=== PATIENT | male | born 1990 | race American Indian/Alaskan Native ===

== ENCOUNTER 2016-08-18 22:25 | Emergency (ER) | payer OTHER ==
--- NOTE | 2016-08-19 03:37 | XRay Report ---
FINAL REPORT PROCEDURE: XR CHEST ROUTINE 2V TECHNIQUE: PA and lateral chest radiographs were obtained. CPT 28987 HISTORY: Upper Respiratory Infection COMPARISON: No prior studies are available for comparison. FINDINGS: Heart: Normal. Mediastinum/Vessels: Normal. Lungs/Pleural space: Normal. Bony thorax: No acute osseous abnormality. Other: IMPRESSION: Normal examination.
[2016-08-19 04:15] LABS: Basophils % (Auto) 0.7 % (0.0-1.8); Hematocrit 42.2 % (35.5-45.6); Mean Corpuscular HGB Conc 33 % (32-34); Mean Corpuscular Hemoglobin 29 pg (28-32); Mean Corpuscular Volume 88 fl (84-94); Platelet Count 271 K/mm3 (140-440); Red Blood Count 4.81 M/mm3 (3.65-5.03); Red Cell Distribution Width 14.4 % (13.2-15.2); White Blood Count 7.1 K/mm3 (4.5-11.0)
[2016-08-19 04:41] VITALS: BP 152/108
[2016-08-19 04:47] LABS: Anion Gap 15 mmol/L; Blood Urea Nitrogen 9 mg/dL (9-20); Calcium 9.1 mg/dL (8.4-10.2); Carbon Dioxide 25 mmol/L (22-30); Chloride 95.6 mmol/L (98-107); Glucose 151 mg/dL (75-100); Potassium 3.5 mmol/L (3.6-5.0); Sodium 132 mmol/L (137-145)
--- NOTE | 2016-08-19 05:00 | Emergency Department Report ---
HPI - General Chief Complaint: Upper Respiratory Infection Time Seen by Provider: 08/19/16 03:09 - HPI HPI: 26-year-old male presents today with nasal congestion, cough, chest congestion and chest pain with deep breaths 4 days. Patient denies chest pain at rest. Patient states that he has tried taking [id number] cough medication and Motrin without relief. Denies sick contacts. Denies fever, chills, nausea, vomiting, shortness of breath, abdominal pain. ED Past Medical Hx - Past Medical History Previous Medical History?: Yes Hx Asthma: Yes (as child) Additional medical history: herniated discs - Surgical History Past Surgical History?: No - Social History Smoking Status: Current Every Day Smoker Substance Use Type: Alcohol - Medications Home Medications: Home Medications Medication Instructions Recorded Confirmed Last Taken Type Cephalexin [Keflex] 500 mg PO BID #20 capsule 06/26/16 Unknown Rx Ibuprofen [Motrin 800 MG tab] 800 mg PO Q8HR PRN #30 tablet 06/26/16 Unknown Rx Azithromycin [Zithromax Z-MICHELLE] 250 mg PO QDAY #6 tablet 08/19/16 Unknown Rx Promethazine Dm [Phenergan DM 5 ml PO Q6H PRN #1 bottle 08/19/16 Unknown Rx 6.25-15 mg/5 ml] ED Review of Systems ROS: Stated complaint: COLD SYMPTOMS Other details as noted in HPI Constitutional: denies: chills, fever, malaise ENT: congestion. denies: ear pain, throat pain Respiratory: cough. denies: shortness of breath, wheezing Cardiovascular: chest pain. denies: palpitations Endocrine: no symptoms reported Gastrointestinal: denies: abdominal pain, nausea, vomiting Neurological: denies: headache, weakness Physical Exam - Physical Exam Vital Signs: Vital Signs 08/18/16 08/19/16 23:37 04:38 Temperature 99.4 F 98.4 F Pulse Rate 96 H 93 H Respiratory 20 20 Rate Blood Pressure 147/97 Blood Pressure 152/108 [Right] O2 Sat by Pulse 100 98 Oximetry Physical Exam: GENERAL: The patient is well-developed and well-nourished. Patient is in NAD. HEAD: Normocephalic. Atraumatic. EYES: PERRL. EARS: External auditory canals and tympanic membranes clear; hearing grossly intact. NOSE: Normal nasal mucosa with no nasal discharge. No tenderness to palpation of maxillary or frontal sinuses. THROAT: No erythema, swelling or exudates. NECK: Supple, nontender, without lymphadenopathy. CHEST/LUNGS: Clear to auscultation throughout. HEART/CARDIOVASCULAR: Regular rate and rhythm. ABDOMEN: Abdomen is soft, nontender. No guarding or rebound tenderness. EXTREMITIES: Peripheral pulses intact. Capillary refill less than 2 seconds. NEURO: Alert and oriented x 3. Normal gait. ED Course Vital Signs 08/18/16 08/19/16 23:37 04:38 Temperature 99.4 F 98.4 F Pulse Rate 96 H 93 H Respiratory 20 20 Rate Blood Pressure 147/97 Blood Pressure 152/108 [Right] O2 Sat by Pulse 100 98 Oximetry ED Medical Decision Making - Lab Data Result diagrams: 08/19/16 04:06 08/19/16 04:06 Vital Signs 08/18/16 08/19/16 23:37 04:38 Temperature 99.4 F 98.4 F Pulse Rate 96 H 93 H Respiratory 20 20 Rate Blood Pressure 147/97 Blood Pressure 152/108 [Right] O2 Sat by Pulse 100 98 Oximetry Lab Results 08/19/16 08/19/16 Range/Units 04:06 04:06 WBC 7.1 (4.5-11.0) K/mm3 RBC 4.81 (3.65-5.03) M/mm3 Hgb 14.0 (11.8-15.2) gm/dl Hct 42.2 (35.5-45.6) % MCV 88 (84-94) fl MCH 29 (28-32) pg MCHC 33 (32-34) % RDW 14.4 (13.2-15.2) % Plt Count 271 (140-440) K/mm3 Lymph % (Auto) 25.1 (13.4-35.0) % [place] % (Auto) 13.6 H (0.0-7.3) % Eos % (Auto) 9.0 H (0.0-4.3) % Baso % (Auto) 0.7 (0.0-1.8) % Lymph # 1.8 (1.2-5.4) K/mm3 [place] # 1.0 H (0.0-0.8) K/mm3 Eos # 0.6 H (0.0-0.4) K/mm3 Baso # 0.0 (0.0-0.1) K/mm3 Seg Neutrophils % 51.6 (40.0-70.0) % Seg Neutrophils # 3.7 (1.8-7.7) K/mm3 Sodium 132 L (137-145) mmol/L Potassium 3.5 L (3.6-5.0) mmol/L Chloride 95.6 L (98-107) mmol/L Carbon Dioxide 25 (22-30) mmol/L Anion Gap 15 mmol/L BUN 9 (9-20) mg/dL Creatinine 0.9 (0.8-1.5) mg/dL Estimated GFR > 60 ml/min BUN/Creatinine Ratio 10.00 % Glucose 151 H (75-100) mg/dL Calcium 9.1 (8.4-10.2) mg/dL - Radiology Data Radiology results: report reviewed Chest x-ray: Heart, mediastinum, vessels, lung/pleural space is normal. No acute osseous abnormality. - Medical Decision Making 36-year-old male presents today with cough and cold symptoms 4 days. His chest x-ray is within normal limits. Patient is in no acute distress at this time. He will be discharged home and is encouraged to follow up with a primary care provider. He will be sent home on azithromycin, promethazine DM and is encouraged to return to the emergency room for any worsening symptoms. Critical care attestation.: If time is entered above; I have spent that time in minutes in the direct care of this critically ill patient, excluding procedure time. ED Disposition Clinical Impression: Bronchitis URI (upper respiratory infection) Qualifiers: URI type: unspecified URI Qualified Code(s): J06.9 - Acute upper respiratory infection, unspecified Disposition: DISCHARGED TO HOME OR SELFCARE Is pt being admited?: No Does the pt Need Aspirin: No Condition: Stable Instructions: Acute Bronchitis (ED), Upper Respiratory Infection (ED) Additional Instructions: Follow-up with primary care provider. Return to the emergency department if symptoms worsen. Prescriptions: Azithromycin [Zithromax Z-MICHELLE] 250 mg PO QDAY #6 tablet Promethazine Dm [Phenergan DM 6.25-15 mg/5 ml] 5 ml PO Q6H PRN #1 bottle PRN Reason: Cough Referrals: PRIMARY CARE, [Primary Care Provider] - 3-5 Days [facility] [Outside] - 3-5 Days Forms: Work/School Release Form(ED) Time of Disposition: 05:00
== END 2016-08-19 06:00 | disposition home or self-care (01) ==
LOC: ED 22:25
DX: J40 Bronchitis, not specified as acute or chronic (principal); J06.9 Acute upper respiratory infection, unspecified; J45.909 Unspecified asthma, uncomplicated; F17.200 Nicotine dependence, unspecified, uncomplicated
CPT/HCPCS: 36415; 71020; 80048; 85025; 99283

== ENCOUNTER 2016-11-29 17:36 | Emergency (ER) | payer SELFPAY ==
[2016-11-29 17:54] VITALS: BP 140/90
[2016-11-29] MEDS ORDERED: PEPCID IV ONE (18:35)
[2016-11-29] MEDS ORDERED: BENADRYL IV ONE (18:35)
--- NOTE | 2016-11-29 19:18 | Emergency Department Report ---
HPI - General Chief Complaint: Allergic Reaction Time Seen by Provider: 11/29/16 18:27 ED Past Medical Hx - Past Medical History Hx Asthma: Yes (as child) Additional medical history: herniated discs - Social History Smoking Status: Current Every Day Smoker Substance Use Type: None - Medications Home Medications: Home Medications Medication Instructions Recorded Confirmed Last Taken Type Cephalexin [Keflex] 500 mg PO BID #20 capsule 06/26/16 Unknown Rx Ibuprofen [Motrin 800 MG tab] 800 mg PO Q8HR PRN #30 tablet 06/26/16 Unknown Rx Azithromycin [Zithromax Z-MICHELLE] 250 mg PO QDAY #6 tablet 08/19/16 Unknown Rx Promethazine Dm [Phenergan DM 5 ml PO Q6H PRN #1 bottle 08/19/16 Unknown Rx 6.25-15 mg/5 ml] ED Review of Systems ROS: Stated complaint: POSS ALLERGIC REACTION Other details as noted in HPI Physical Exam - Physical Exam Vital Signs: Vital Signs 11/29/16 17:50 Temperature 98.2 F Pulse Rate 92 H Respiratory 18 Rate Blood Pressure 140/90 O2 Sat by Pulse 100 Oximetry ED Course Vital Signs 11/29/16 17:50 Temperature 98.2 F Pulse Rate 92 H Respiratory 18 Rate Blood Pressure 140/90 O2 Sat by Pulse 100 Oximetry Critical care attestation.: If time is entered above; I have spent that time in minutes in the direct care of this critically ill patient, excluding procedure time. ED Disposition Condition: Stable Referrals: PRIMARY CARE, [Primary Care Provider] - 3-5 Days
--- NOTE | 2016-11-29 19:34 | Emergency Department Report ---
Entered by LISSY ROSE, acting as scribe for ESCOBAR PIRES PA. ED Allergic Reaction HPI - General Chief complaint: Allergic Reaction Stated complaint: POSS ALLERGIC REACTION Time Seen by Provider: 11/29/16 18:30 Source: patient, family Mode of arrival: Ambulatory Limitations: No Limitations - History of Present Illness Initial Comments: 26 y/o male with a PMHx childhood asthma and herniated discs presents to the ED c/o an allergic reaction that began yesterday. Associated symptoms include rash to upper extremities and abdomen with associated itching and burning, and difficulty breathing, but he denies drooling, numbness, tingling, fever, chills , abdominal pain, nausea, and vomiting. Denies any recent yard work, eating new food, or taking new medication. 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 Applied OTC cream to affected areas with no relief. NKDA. JOAQUIN Complaint: allergic reaction Onset/Timin -: days(s) Exposure: unknown Symptoms: rash (upper extremities and trunk), itching (itching to affected areas ), difficulty breathing. denies: facial swelling, lip swelling, difficulty swallowing, orolingual swelling, hoarseness, nausea, vomiting, abdominal pain Severity: mild Treatment Prior to Arrival: topical medicine, other (applied OTC cream to affected areas with no relief) Previous Allergy History: none - Related Data Previous Rx's Medication Instructions Recorded Last Taken Type Cephalexin [Keflex] 500 mg PO BID #20 capsule 06/26/16 Unknown Rx Ibuprofen [Motrin 800 MG tab] 800 mg PO Q8HR PRN #30 tablet 06/26/16 Unknown Rx Azithromycin [Zithromax Z-MICHELLE] 250 mg PO QDAY #6 tablet 08/19/16 Unknown Rx Promethazine Dm [Phenergan DM 5 ml PO Q6H PRN #1 bottle 08/19/16 Unknown Rx 6.25-15 mg/5 ml] Cetirizine HCl [ZyrTEC] 10 mg PO QAM #6 capsule 11/29/16 Unknown Rx diphenhydrAMINE [Benadryl CAP] 50 mg PO QHS #5 capsule 11/29/16 Unknown Rx methylPREDNISolone [Medrol] 4 mg PO QAM #1 tab.ds.pk 11/29/16 Unknown Rx Allergies Allergy/AdvReac Type Severity Reaction Status Date / Time seafood Allergy Swelling Uncoded 11/29/16 17:50 ED Review of Systems Comment: All other systems reviewed and negative Constitutional: no symptoms reported. denies: chills, fever, other (tingling) Eyes: denies: eye pain, eye discharge, vision change ENT: denies: throat pain, congestion, other (drooling) Respiratory: other (difficulty breathing). denies: cough, shortness of breath, SOB with exertion, SOB at rest, stridor, wheezing Cardiovascular: denies: chest pain, palpitations, edema, syncope Gastrointestinal: denies: abdominal pain, nausea, vomiting Musculoskeletal: denies: back pain, arthralgia Skin: rash (present on upper extremities and abdomen with associated itching), pruritus Neurological: denies: headache, numbness ED Past Medical Hx - Past Medical History Previous Medical History?: Yes Hx Asthma: Yes (as child) Additional medical history: herniated discs - Surgical History Past Surgical History?: No - Family History Family history: no significant - Social History Smoking Status: Current Every Day Smoker Substance Use Type: None - Medications Home Medications: Home Medications Medication Instructions Recorded Confirmed Last Taken Type Cephalexin [Keflex] 500 mg PO BID #20 capsule 06/26/16 Unknown Rx Ibuprofen [Motrin 800 MG tab] 800 mg PO Q8HR PRN #30 tablet 06/26/16 Unknown Rx Azithromycin [Zithromax Z-MICHELLE] 250 mg PO QDAY #6 tablet 08/19/16 Unknown Rx Promethazine Dm [Phenergan DM 5 ml PO Q6H PRN #1 bottle 08/19/16 Unknown Rx 6.25-15 mg/5 ml] Cetirizine HCl [ZyrTEC] 10 mg PO QAM #6 capsule 11/29/16 Unknown Rx diphenhydrAMINE [Benadryl CAP] 50 mg PO QHS #5 capsule 11/29/16 Unknown Rx methylPREDNISolone [Medrol] 4 mg PO QAM #1 tab.ds.pk 11/29/16 Unknown Rx ED Physical Exam - General Limitations: No Limitations General appearance: alert, in no apparent distress - Head Head exam: Present: atraumatic, normocephalic - Eye Eye exam: Present: normal appearance, PERRL, EOMI. Absent: scleral icterus, conjunctival injection Pupils: Present: normal accommodation - ENT ENT exam: Present: normal exam, normal orophraynx, mucous membranes moist, normal external ear exam, other (No facial swelling.) - Expanded ENT Exam Expanded Ear exam: Present: normal external inspection Mouth exam: Present: normal external inspection, tongue normal, other (Uvula is midline and oral airway is patent.). Absent: drooling, trismus, muffled voice, tongue elevation, laceration Teeth exam: Present: normal inspection Throat exam: Positive: normal inspection, other (No pharyngeal exudate or erythema. No peritonsillar abscesses. Uvula is midline and oral airway is patent). Negative: tonsillar erythema, tonsillomegaly, tonsillar exudate, R peritonsillar mass, L peritonsillar mass - Neck Neck exam: Present: normal inspection (supple), full ROM. Absent: tenderness, meningismus, lymphadenopathy - Expanded Neck Exam Expanded Neck exam: Absent: tenderness, midline deformity, anterior neck swelling, tracheal deviation - Respiratory Respiratory exam: Present: normal lung sounds bilaterally (Normal work of breathing. No adventitious sounds.). Absent: respiratory distress, wheezes, rales, rhonchi, stridor, chest wall tenderness, accessory muscle use, decreased breath sounds - Cardiovascular Cardiovascular Exam: Present: regular rate, normal rhythm, normal heart sounds - GI/Abdominal GI/Abdominal exam: Present: soft, normal bowel sounds (present in all quadrants) . Absent: distended, tenderness, guarding, rebound, rigid - Extremities Exam Extremities exam: Present: normal inspection, full ROM, normal capillary refill , other (no clubbing cyanosis or edema present to extremities. 2+ pulses.). Absent: tenderness, pedal edema, joint swelling, calf tenderness - Back Exam Back exam: Present: normal inspection, full ROM - Neurological Exam Neurological exam: Present: alert, oriented X3, normal gait - Psychiatric Psychiatric exam: Present: normal affect, normal mood - Skin Skin exam: Present: warm, dry, intact, rash (maculopapular rash with mild erythema on bilateral upper extremities that are sparsely scattered on abdomen) , erythema. Absent: cyanosis - Expanded Skin Exam Expanded Type of lesion: Present: rash Distribution of rash: abdomen (processes scattered to abdomen), RUE, LUE Description of rash: Present: erythematous (mildly erythematous), macular, papular. Absent: tenderness, swelling, vesicular, blisters, urticarial, crusting, discharge, fluctuant, indurated ED Course Vital Signs 11/29/16 17:50 Temperature 98.2 F Pulse Rate 92 H Respiratory 18 Rate Blood Pressure 140/90 O2 Sat by Pulse 100 Oximetry - Reevaluation(s) Reevaluation #1: 11/29/16 19:25 INT started and patient given Benadryl 50 mg IV, Solu-Medrol 125 mg IV and Pepcid 20 mg IV. Upon reevaluation, rashes subsiding. Patient does not have any respiratory symptoms, tongue is normal and his oral airway is patent. ED Medical Decision Making - Medical Decision Making ED course: Patient with contact dermatitis unknown source. Pruritic dermatitis. He was treated in the emergency room with Solu-Medrol 125 mg IV, Benadryl 50 mg IV and Pepcid 20 mg IV. Upon reevaluation, rashes subsiding, no wheezing, stridor, tongue is normal, uvula is midline and oral airway was patent. I instructed patient on treatment plan and diagnosis and he voiced understanding. I also instructed him that he needs to follow up with Paralegal Legal Secretary 2 days or return to emergency room if his symptoms return. Condition discharged home with prescription for Medrol Dosepak, Benadryl at night and Zyrtec during the day. DC home with his family. ED Disposition Clinical Impression: Pruritic disorder Contact dermatitis Qualifiers: Contact dermatitis type: unspecified Contact dermatitis trigger: other trigger Qualified Code(s): L25.8 - Unspecified contact dermatitis due to other agents Disposition: DISCHARGED TO HOME OR SELFCARE Is pt being admited?: No Does the pt Need Aspirin: No Condition: Stable Instructions: Contact Dermatitis (ED), Itchy Skin (ED) Additional Instructions: Take medication as prescribed. Follow-up with head of music in 2 days for he can follow-up with [facility]. Return to emergency room as soon as possible if you have symptoms return or for follow-up visit. Prescriptions: diphenhydrAMINE [Benadryl CAP] 50 mg PO QHS #5 capsule Cetirizine HCl [ZyrTEC] 10 mg PO QAM #6 capsule methylPREDNISolone [Medrol] 4 mg PO QAM #1 tab.ds.pk Referrals: PRIMARY CARE, [Primary Care Provider] - 12/01/16 [facility] [Outside] - 12/01/16 JULIEN NORIEGA MD [Staff Physician] - 12/01/16 Forms: Accompanied Note, Work/School Release Form(ED) This documentation as recorded by the MILTON alvarez JASMINE,accurately reflects the service I personally performed and the decisions made by me,ESCOBAR PIRES PA.
== END 2016-11-29 19:54 | disposition home or self-care (01) ==
LOC: ED 17:36
DX: L25.8 Unspecified contact dermatitis due to other agents (principal); L29.9 Pruritus, unspecified; J45.909 Unspecified asthma, uncomplicated; F17.200 Nicotine dependence, unspecified, uncomplicated
CPT/HCPCS: 96374; 96375; 99282; J1200; J2930

== ENCOUNTER 2018-02-03 11:54 | Emergency (ER) | payer SELFPAY ==
[2018-02-03] MEDS ORDERED: MOTRIN PO ONE (13:17)
--- NOTE | 2018-02-03 13:20 | Emergency Department Report ---
Upper Extremity - HPI Chief Complaint: Extremity Injury, Upper Stated Complaint: (R) HAND CANNOT MOVE Time Seen by Provider: 02/03/18 13:11 Upper Extremity: Right Wrist, Right Hand, Right Thumb Occurred When: 3 Days Severity: moderate Symptoms: Yes Pain with Movement, Yes Swelling, No Deformity, No Limited Range of Movement, No Numbness, No Weakness, No Bruising/Ecchymosis, No Laceration or Abrasion Other History: 27-year-old male past medical history obesity, asthma, lumbar herniated disks presents with complaint of right hand pain status post mechanical fall/blunt trauma to right hand/wrist. Patient states that while moving a heavy [employer] that he stumbled and fell onto his right wrist and that the cabinet also fell onto his wrist. This occurred 3 days ago. Patient complaining of swelling and pain at base of right hand near wrist and base of thumb. Visible slight swelling of right hand. Patient is visibly moving all fingers without significant difficulty. Small abrasion. No signs of cellulitis on initial inspection. Patient denies any other injury ED Review of Systems ROS: Stated complaint: (R) HAND CANNOT MOVE Other details as noted in HPI Constitutional: denies: chills, fever Eyes: denies: eye pain, eye discharge, vision change ENT: denies: ear pain, throat pain Respiratory: denies: cough, shortness of breath, wheezing Cardiovascular: denies: chest pain, palpitations Endocrine: no symptoms reported Gastrointestinal: denies: abdominal pain, nausea, diarrhea Genitourinary: denies: urgency, dysuria Musculoskeletal: as per HPI, arthralgia. denies: back pain, joint swelling Skin: denies: rash, lesions Neurological: denies: headache, weakness, paresthesias Psychiatric: denies: anxiety, depression Hematological/Lymphatic: denies: easy bleeding, easy bruising ED Past Medical Hx - Past Medical History Hx Asthma: Yes (as child) Additional medical history: herniated discs - Surgical History Past Surgical History?: No - Social History Smoking Status: Current Every Day Smoker Substance Use Type: Alcohol - Medications Home Medications: Home Medications Medication Instructions Recorded Confirmed Last Taken Type Cephalexin [Keflex] 500 mg PO BID #20 capsule 06/26/16 Unknown Rx Ibuprofen [Motrin 800 MG tab] 800 mg PO Q8HR PRN #30 tablet 06/26/16 Unknown Rx Azithromycin [Zithromax Z-MICHELLE] 250 mg PO QDAY #6 tablet 08/19/16 Unknown Rx Promethazine Dm [Phenergan DM 5 ml PO Q6H PRN #1 bottle 08/19/16 Unknown Rx 6.25-15 mg/5 ml] Cetirizine HCl [ZyrTEC] 10 mg PO QAM #6 capsule 11/29/16 Unknown Rx diphenhydrAMINE [Benadryl CAP] 50 mg PO QHS #5 capsule 11/29/16 Unknown Rx methylPREDNISolone [Medrol] 4 mg PO QAM #1 tab.ds.pk 11/29/16 Unknown Rx Acetaminophen/Codeine [Tylenol 1 tab PO Q6H PRN #9 tab 02/03/18 Unknown Rx /Codeine # 3 tab] Cephalexin [Keflex] 500 mg PO BID #10 capsule 02/03/18 Unknown Rx Ibuprofen [Motrin] 800 mg PO Q8HR PRN #20 tablet 02/03/18 Unknown Rx Upper Extremity Exam - Exam General: Vital signs noted. No distress. Alert and acting appropriately. Head and Torso: No HEENT Abnormality, No Neck Tenderness, No Chest/Lungs Abnormality, No Abdominal Tenderness, No Back Tenderness Shoulder Exam: Yes Normal Range of Motion in Shoulder, No Shoulder Tenderness, No Clavicle Tenderness, No Shoulder Deformity, No AC Joint Tenderness Arm Exam: No Arm/Humerus Tenderness, No Arm Deformity Elbow: No Elbow Tenderness, No Normal Range of Motion in Elbow, No Elbow Deformity Forearm: No Forearm Tenderness, No Forearm Deformity, No Pain with Pronation, No Pain with Supination Wrist: Yes Wrist Tenderness (distal right wrist tenderness on deep palpation), Yes Normal ROM in Wrist, No Wrist Deformity, No Snuffbox Tenderness (no snuffbox tenderness on palpation), No Pain with Axial Thumb Compression Hand: Yes Normal ROM in Digit(s) (range of motion all fingers clinically intact) , No Hand Tenderness, No Hand Deformity, No Digit Tenderness, No Digit(s) Deformity, No Tendon Dysfunction CMS Exam: Yes Normal Distal Pulses (distal radial brachial and ulnar pulses strong to palpation), Yes Normal Capillary Refill (cap refill less than 1 second finger), Yes Normal Distal Sensation, No Broken Skin Hand L/R Back: 1 - Pain here ED Course Vital Signs 02/03/18 12:07 Temperature 98.4 F Pulse Rate 73 Respiratory 16 Rate Blood Pressure 154/64 O2 Sat by Pulse 96 Oximetry ED Medical Decision Making - Medical Decision Making A/P: Right hand pain 1-xray showed no acute fracture soft tissue swelling consistent with right hand sprain and contusion 2-Motrin when necessary 3-slight redness of skin overlying area with small abrasion. Rodrigo cover empirically with short course of Keflex 4- tdap vaccine status utd Critical care attestation.: If time is entered above; I have spent that time in minutes in the direct care of this critically ill patient, excluding procedure time. ED Disposition Clinical Impression: Contusion of right hand Qualifiers: Encounter type: initial encounter Qualified Code(s): S60.221A - Contusion of right hand, initial encounter Cellulitis Qualifiers: Site of cellulitis: extremity Site of cellulitis of extremity: upper extremity Laterality: right Qualified Code(s): L03.113 - Cellulitis of right upper limb Disposition: DC-01 TO HOME OR SELFCARE Is pt being admited?: No Does the pt Need Aspirin: No Condition: Stable Instructions: Hand Sprain (ED), Contusion in Adults (ED), Cellulitis (ED) Prescriptions: Acetaminophen/Codeine [Tylenol /Codeine # 3 tab] 1 tab PO Q6H PRN #9 tab PRN Reason: Pain , Severe (7-10) Cephalexin [Keflex] 500 mg PO BID #10 capsule Ibuprofen [Motrin] 800 mg PO Q8HR PRN #20 tablet PRN Reason: Pain , Severe (7-10) Referrals: [facility] [Provider Group] - 3-5 Days Forms: Work/School Release Form(ED) Time of Disposition: 14:29
--- NOTE | 2018-02-03 14:23 | XRay Report ---
RIGHT WRIST, 4 VIEWS: History: wrist pain, injury. Routine views demonstrate the carpal bones to be well mineralized with well preserved bony mineralization and interosseous joint spaces. The carpal and adjacent articular bones have normal contours. The surrounding soft tissues are unremarkable. IMPRESSION: Unremarkable right wrist.
--- NOTE | 2018-02-03 14:23 | XRay Report ---
RIGHT HAND, 3 views: History: Hand pain. The bony architecture is intact. Bony alignment is normal. The joint spaces appear preserved. There is moderate diffuse soft tissue swelling. IMPRESSION: Soft tissue swelling.
[2018-02-03 14:44] VITALS: BP 150/62
== END 2018-02-03 14:43 | disposition home or self-care (01) ==
LOC: ED 11:54
DX: S60.221A Contusion of right hand, initial encounter (principal); L03.113 Cellulitis of right upper limb; J45.909 Unspecified asthma, uncomplicated; F17.200 Nicotine dependence, unspecified, uncomplicated; Z91.013 Allergy to seafood; W01.0XXA Fall on same level from slipping, tripping and stumbling without subsequent striking against object, initial encounter; Y93.89 Activity, other specified; Y92.89 Other specified places as the place of occurrence of the external cause; Y99.8 Other external cause status
CPT/HCPCS: 99283

== ENCOUNTER 2019-12-29 21:24 | Emergency (ER) | payer SELFPAY ==
[2019-12-29 21:35] VITALS: BP 147/79
--- NOTE | 2019-12-30 01:16 | Emergency Department Report ---
[facility] Chief Complaint: Eye Problems Stated Complaint: BILATERAL EYE IRRITAION, BLURRED VISION Time Seen by Provider: 12/30/19 01:11 Duration: 1 week Side: Bilateral Symptoms: Yes Eye Redness, Yes Purulent Drainage, Yes Blurred Vision, Yes H/O Allergic Rhinitis, No Eye Itching, No Eye Pain, No Preceding URI, No Contact Lens Use, No Trauma, No Fever, No Headache Other History: Patient is a 29-year-old male that presents emergency room with complaints of pinkeye and discharge from his bilateral eyes. Patient states been going on for a week. Patient states that the discharge was improving and then worsened yesterday. Patient states his eyes are irritated. Patient denies fever and chills. Patient denies blurry vision. Patient denies severe pain. Patient states that just feels like sand or grit in his eyes but no pain. Patient does not use contacts. Patient states he has not seen anybody for this. Patient denies recent URI. Patient denies recent travel. Patient denies recen t international travel. Patient denies exposure to the novel coronavirus. Patient denies sick contacts. Patient denies fever and chills. Patient denies cough. Patient denies diarrhea. Patient denies coming in contact with anybody with symptoms of the novel coronavirus. ED Review of Systems ROS: Stated complaint: BILATERAL EYE IRRITAION, BLURRED VISION Other details as noted in HPI Constitutional: denies: chills, fever Eyes: eye discharge. denies: eye pain, vision change ENT: denies: ear pain, throat pain Respiratory: denies: cough, shortness of breath, wheezing Cardiovascular: denies: chest pain, palpitations Endocrine: no symptoms reported Gastrointestinal: denies: abdominal pain, nausea, diarrhea Genitourinary: denies: urgency, dysuria Musculoskeletal: denies: back pain, joint swelling, arthralgia Skin: denies: rash, lesions Neurological: denies: headache, weakness, paresthesias Psychiatric: denies: anxiety, depression Hematological/Lymphatic: denies: easy bleeding, easy bruising ED Past Medical Hx - Past Medical History Previous Medical History?: Yes Hx Asthma: Yes (as child) Additional medical history: herniated discs - Surgical History Past Surgical History?: No - Family History Family history: no significant - Social History Smoking Status: Current Every Day Smoker Substance Use Type: Alcohol, Marijuana - Medications Home Medications: Home Medications Medication Instructions Recorded Confirmed Last Taken Type Cephalexin [Keflex] 500 mg PO BID #20 capsule 06/26/16 Unknown Rx Ibuprofen [Motrin 800 MG tab] 800 mg PO Q8HR PRN #30 tablet 06/26/16 Unknown Rx Azithromycin [Zithromax Z-MICHELLE] 250 mg PO QDAY #6 tablet 08/19/16 Unknown Rx Promethazine Dm (Nf) [Phenergan DM 5 ml PO Q6H PRN #1 bottle 08/19/16 Unknown Rx 6.25-15 mg/5 ml] Cetirizine HCl [ZyrTEC] 10 mg PO QAM #6 capsule 11/29/16 Unknown Rx diphenhydrAMINE [Benadryl CAP] 50 mg PO QHS #5 capsule 11/29/16 Unknown Rx methylPREDNISolone [Medrol] 4 mg PO QAM #1 tab.ds.pk 11/29/16 Unknown Rx Acetaminophen/Codeine [Tylenol 1 tab PO Q6H PRN #9 tab 02/03/18 Unknown Rx /Codeine # 3 tab] Cephalexin [Keflex] 500 mg PO BID #10 capsule 02/03/18 Unknown Rx Ibuprofen [Motrin] 800 mg PO Q8HR PRN #20 tablet 02/03/18 Unknown Rx ALBUTEROL Inhaler(NF) [VENTOLIN 2 puff IH Q4H PRN #1 inha 05/22/18 Unknown Rx Inhaler(NF)] Azithromycin [Zithromax Z-MICHELLE] 250 mg PO DAILY #6 tab 05/22/18 Unknown Rx Codeine Phosphate/Guaifenesin 5 ml PO TID PRN #120 ml 05/22/18 Unknown Rx [Guaifen-Codeine 100-10 mg/5 ml] Ibuprofen 800 mg PO TID PRN #30 tablet 05/22/18 Unknown Rx predniSONE [Deltasone] 40 mg PO DAILY 5 Days #10 tablet 05/22/18 Unknown Rx Erythromycin [Erythromycin Ophth 1 cm OP ONCE 7 Days #1 tube 12/30/19 Unknown Rx Oint] [facility] Exam - Exam General: Vital signs noted. No distress. Alert and acting appropriately. Eye Exam: Both Injection, Both EOMI, Both Purulent Discharge, Neither Abnormal Pupil, Neither Eye Foreign Body, Neither Lid Foreign Body, Neither Corneal E fernando, Neither Photophobia HEENT: No Nasal Congestion, No Pharyngeal Erythema Remainder of HEENT: Normal Lungs: Yes Clear Lung Sounds, Yes Good Air Exchange, No Wheezes, No Stridor, No Cough, No Nasal Flaring, No Retractions, No Use of Accessory Muscles Exam: No tenderness around the eyes. No swelling to the bilateral eyelids. ED Course Vital Signs 12/29/19 21:33 Temperature 98.6 F Pulse Rate 96 H Respiratory 20 Rate Blood Pressure 147/79 O2 Sat by Pulse 98 Oximetry - Reevaluation(s) Reevaluation #1: I discussed all clinical findings with patient. I discussed plan of care with patient. Patient agrees with plan of care. Patient is stable for discharge. Patient will be discharged home. Patient given discharge instructions. Patient voiced understanding of discharge instructions. 12/30/19 01:15 ED Medical Decision Making - Medical Decision Making Patient is a 29-year-old male that presents emergency room complaints of pinkeye and purulent discharge from his bilateral eyes. Patient's symptoms been going on for a week. Patient's medical findings are consistent with bilateral conjunctivitis. Patient given antibiotic ointment for his eyes. Patient stable for discharge. Patient not require further evaluation in the ER. Patient given discharge instructions. - Differential Diagnosis Conjunctivitis Critical care attestation.: If time is entered above; I have spent that time in minutes in the direct care of this critically ill patient, excluding procedure time. ED Disposition Clinical Impression: Acute bacterial conjunctivitis Qualifiers: Laterality: bilateral Qualified Code(s): H10.33 - Unspecified acute conjunctivitis, bilateral Disposition: TO HOME OR SELFCARE Is pt being admited?: No Does the pt Need Aspirin: No Condition: Stable Instructions: Conjunctivitis (ED) Additional Instructions: Patient to follow-up with primary care in 2 to 3 days. Patient to follow-up with chemical educator in 2 to 3 days. Patient to rest. Patient to increase water. Patient to take Tylenol or ibuprofen as needed for pain. Patient to take meds as directed. Patient to return to the ER if condition worsens, changes or new symptoms arise. Prescriptions: Erythromycin [Erythromycin Ophth Oint] 1 cm OP ONCE 7 Days #1 tube Referrals: ERASMO LANGSTON MD [Primary Care Provider] - 2-3 Days THADDEUS ESPINAL MD [Staff Physician] - 2-3 Days Time of Disposition: :21
== END 2019-12-30 02:47 | disposition home or self-care (01) ==
LOC: ED 21:24
DX: H10.33 Unspecified acute conjunctivitis, bilateral (principal); J45.909 Unspecified asthma, uncomplicated; F17.200 Nicotine dependence, unspecified, uncomplicated; F12.10 Cannabis abuse, uncomplicated; Z79.899 Other long term (current) drug therapy; Z91.013 Allergy to seafood
CPT/HCPCS: 99282